=== PATIENT | female | born 1990 | race Caucasian/White ===

== ENCOUNTER 2016-12-20 13:53 | Emergency (ER) | payer BC, MEDICAID ==
[2016-12-20 14:11] VITALS: BP 111/68; RESP 18; TEMP 98; O2SAT 100
--- NOTE | 2016-12-20 14:23 | ED PDOC ---
HPI: Skin/Bite Injury Time Seen by Provider: 12/20/16 14:12 Chief Complaint (Nursing): Abnormal Skin Integrity Chief Complaint (Provider): Boil History Per: Patient History/Exam Limitations: no limitations Onset/Duration Of Symptoms: Days (x3) Current Symptoms Are (Timing): Still Present Location Of Injury: Right: Hip Quality Of Symptoms: Draining Severity: Mild Additional Complaint(s): Patient is a 26 year old female presents to the ED complaining of a boil to her right inguinal area. Patient reports she was able to express puss 2 days ago and the boil decreased in size. Denies fever. PMD: none Past Medical History Reviewed: Historical Data, Nursing Documentation, Vital Signs Vital Signs: Last Vital Signs Temp 98 F 12/20/16 14:08 Pulse 74 12/20/16 14:35 Resp 18 12/20/16 14:08 BP 111/68 12/20/16 14:08 Pulse Ox 100 12/20/16 14:25 - Medical History PMH: No Chronic Diseases - Family History Family History: States: No Known Family Hx - Immunization History Hx Tetanus Toxoid Vaccination: No Hx Influenza Vaccination: No Hx Pneumococcal Vaccination: No - Home Medications Home Medications: Ambulatory Orders Medication Instructions Recorded Miconazole 2% Vaginal [Monistat 7 7 applic VG HS #1 tube 10/20/16 Vaginal Cream] Sulfamethoxazole/Trimethoprim 2 tab PO BID #28 tab 12/20/16 [Bactrim DS 800 mg-160 mg] - Allergies Allergies/Adverse Reactions: Allergies Allergy/AdvReac Type Severity Reaction Status Date / Time No Known Allergies Allergy Verified 10/20/16 20:28 Review of Systems ROS Statement: Except As Marked, All Systems Reviewed And Found Negative Constitutional: Negative for: Fever Skin: Positive for: Other (boil to rt inguinal area) Physical Exam - Reviewed Nursing Documentation Reviewed: Yes Vital Signs Reviewed: Yes - Physical Exam Appears: Positive for: Well, Non-toxic, No Acute Distress Head Exam: Positive for: ATRAUMATIC, NORMAL INSPECTION, NORMOCEPHALIC Skin: Negative for: Normal Color (2 cm erythematous indurated non-fluctuant mass to the right inguinal area) Extremity: Positive for: Normal ROM Lymphatic: Positive for: Normal Exam. Negative for: Adenopathy, Inguinal Node Tenderness Neurologic/Psych: Positive for: Alert, Oriented - ECG O2 Sat by Pulse Oximetry: 100 Medical Decision Making Medical Decision Making: Time: 14:15 Impression: 26 y/o female with in-grown hair Plan: Rx for Abx given. Patient advised to use warm compresses and follow up with PMD in 2 days. Re-evaluation. Patient feels better. Discussed results and plan with patient who expresses understanding. Counseling was provided regarding the diagnosis and prognosis. All questions answered and there is agreement with the plan to discharge home with instructions. Patient stable for discharge. Return if symptoms persist or worsen. Scribe Attestation: Documented by Moon Lara acting as a scribe for Rex Stevens. Provider Attestation: All medical record entries made by the Scribe were at my direction and personally dictated by me. I have reviewed the chart and agree that the record accurately reflects my personal performance of the history, physical exam, medical decision making, and the department course for this patient. I have also personally directed, reviewed, and agree with the discharge instructions and disposition. Disposition - Clinical Impression Clinical Impression: Folliculitis - Patient ED Disposition Is Patient to be Admitted: No - Disposition Disposition: Routine/Home Disposition Time: 15:10 Condition: STABLE Additional Instructions: Follow up with Dr. Chery, your PMD, in 2 days for wound check. Return to ED immediately if fever develops or symptoms worsen. Prescriptions: Sulfamethoxazole/Trimethoprim [Bactrim DS 800 mg-160 mg] 2 tab PO BID #28 tab Instructions: Folliculitis (ED) Print Language: PORTUGUESE
[2016-12-20 14:36] VITALS: PULSE 74
== END 2016-12-20 15:20 | disposition home or self-care (01) ==
LOC: H.ER 13:53
DX: L73.9 Follicular disorder, unspecified (principal)